=== PATIENT | female | born 1960 | race African-American/Black ===

== ENCOUNTER 2017-06-18 16:57 | Emergency (ER) | payer MEDICARE, MEDICAID ==
[~2017-06-18] VITALS: Ht 170.2 cm; Wt 93.0 kg
[~2017-06-18 16:57] MED LIST: ALLO300T74; AMLO5TAB4 PO; ASPI-867 PO; CLON0.1T14; DOCU-138 PO; ESCI20TA; INSNOV SUBCUT; LANTUSUD SUBCUT; LIP40 PO; LOSA100T3 PO; METO50TA5 PO; PRAN2; PREG50CA; TRAZ-132; ZET10 PO; [UNRECOGNIZED DRUG - CODE]
[2017-06-18] MEDS ORDERED: IBUPROFEN 600MG TABLET PO STA (22:23)
[2017-06-18] MEDS ORDERED: TETANUS, DIPHTHERIA, PERTUSSIS VAC/PF 0.5ML (>7YR OLD) IM ONE (22:30)
[2017-06-19 00:10] VITALS: BP 153/95
[2017-06-21] MEDS ORDERED: SILVER SULFADIAZINE 1% CREAM 25GM TOP ONE (09:00)
== END 2017-06-19 00:12 | disposition home or self-care (01) ==
LOC: ER 19:49
DX: T22.112A Burn of first degree of left forearm, initial encounter (principal); T22.212A Burn of second degree of left forearm, initial encounter; T21.11XA Burn of first degree of chest wall, initial encounter; T31.0 Burns involving less than 10% of body surface; I10 Essential (primary) hypertension; E11.9 Type 2 diabetes mellitus without complications; F17.200 Nicotine dependence, unspecified, uncomplicated; Z79.4 Long term (current) use of insulin; Z79.82 Long term (current) use of aspirin; Z90.710 Acquired absence of both cervix and uterus; X10.0XXA Contact with hot drinks, initial encounter; Y93.89 Activity, other specified; Y92.89 Other specified places as the place of occurrence of the external cause; Y99.8 Other external cause status
CPT/HCPCS: 16020; 90471; 90715; 99284

== ENCOUNTER 2017-06-20 18:07 | Emergency (ER) | payer MEDICARE, MEDICAID ==
[~2017-06-20] VITALS: Ht 170.2 cm; Wt 98.0 kg
[2017-06-20 18:24] VITALS: BP 128/79
[2017-06-20] MEDS ORDERED: SILVER SULFADIAZINE 1% CREAM 25GM TOP ONE (21:15)
== END 2017-06-20 21:17 | disposition home or self-care (01) ==
LOC: ER 18:07
DX: T21.11XA Burn of first degree of chest wall, initial encounter (principal); T22.112A Burn of first degree of left forearm, initial encounter; F17.200 Nicotine dependence, unspecified, uncomplicated; F12.10 Cannabis abuse, uncomplicated; I10 Essential (primary) hypertension; E78.00 Pure hypercholesterolemia, unspecified; E11.9 Type 2 diabetes mellitus without complications; Z79.4 Long term (current) use of insulin; Z79.82 Long term (current) use of aspirin; X10.0XXA Contact with hot drinks, initial encounter; Y93.89 Activity, other specified; Y92.89 Other specified places as the place of occurrence of the external cause; Y99.8 Other external cause status
CPT/HCPCS: 16000; 99284

== ENCOUNTER 2017-10-22 17:30 | Emergency (ER) | payer MEDICARE, MEDICAID ==
[~2017-10-22] VITALS: Ht 170.2 cm; Wt 92.0 kg
[~2017-10-22 17:30] MED LIST changes: +METO-539 PO; -METO50TA5 PO
[2017-10-22] MEDS ORDERED: IBUPROFEN 600MG TABLET PO ONE (20:30)
[2017-10-22 20:44] VITALS: BP 126/75
== END 2017-10-22 20:44 | disposition home or self-care (01) ==
LOC: ER 18:43
DX: L02.214 Cutaneous abscess of groin (principal); E11.9 Type 2 diabetes mellitus without complications; E78.00 Pure hypercholesterolemia, unspecified; F12.10 Cannabis abuse, uncomplicated; I10 Essential (primary) hypertension; Z79.4 Long term (current) use of insulin; Z79.82 Long term (current) use of aspirin; Z90.710 Acquired absence of both cervix and uterus
CPT/HCPCS: 99283

== ENCOUNTER 2020-09-07 18:00 | Emergency (ER) | payer MEDICARE, MEDICAID ==
[~2020-09-07] VITALS: Ht 170.2 cm; Wt 92.0 kg
[~2020-09-07 18:00] MED LIST changes: -ASPI-867 PO; +ASPI325T85 PO; +EZET10TA13 PO; -TRAZ-132; +TRAZ-252; -ZET10 PO
[2020-09-07 18:25] VITALS: BP 174/92
== END 2020-09-07 19:13 | disposition home or self-care (01) ==
LOC: ER 18:00
DX: N61.1 Abscess of the breast and nipple (principal); E11.9 Type 2 diabetes mellitus without complications; E78.00 Pure hypercholesterolemia, unspecified; I10 Essential (primary) hypertension; Z90.710 Acquired absence of both cervix and uterus; F12.10 Cannabis abuse, uncomplicated; Z79.82 Long term (current) use of aspirin; Z79.899 Other long term (current) drug therapy
CPT/HCPCS: 99283

== ENCOUNTER 2025-02-14 22:17 | Emergency (ER) | payer BC, MEDICAID ==
[~2025-02-14] VITALS: Ht 172.7 cm; Wt 84.0 kg
[~2025-02-14 22:17] MED LIST changes: -AMLO5TAB4 PO; +AMLO5TAB5 PO; +ASPI-867 PO; -ASPI325T85 PO; -EZET10TA13 PO; +EZET10TA81 PO; +LOSA-415 PO; -LOSA100T3 PO
[2025-02-14 22:30] VITALS: O2SAT 100
[2025-02-14] MEDS ORDERED: ACET-2708 MT (23:54)
[2025-02-15] MEDS: ACETAMINOPHEN 325MG TABLET PO ONE (00:06)
[2025-02-15 00:08] VITALS: BP 150/72; PULSE 100; RESP 18; TEMP 36.7; O2SAT 98
== END 2025-02-15 00:08 | disposition home or self-care (01) ==
LOC: ER 22:17
DX: S09.90XA Unspecified injury of head, initial encounter (principal); M53.3 Sacrococcygeal disorders, not elsewhere classified; I10 Essential (primary) hypertension; E78.00 Pure hypercholesterolemia, unspecified; E11.9 Type 2 diabetes mellitus without complications; Z68.28 Body mass index [BMI] 28.0-28.9, adult; N99.3 Prolapse of vaginal vault after hysterectomy; Z79.82 Long term (current) use of aspirin; Z79.899 Other long term (current) drug therapy; W19.XXXA Unspecified fall, initial encounter; Y93.89 Activity, other specified; Y92.89 Other specified places as the place of occurrence of the external cause; Y99.8 Other external cause status
CPT/HCPCS: 72192; 93005; 99284